=== PATIENT | female | born 1955 | race Caucasian/White ===

== ENCOUNTER → 2016-12-26 | Outpatient (REF) | payer OTHER | LOC: M LAB REF 16:15 | PROVIDERS: ATTEND Surgery | DX: C44.519 Basal cell carcinoma of skin of other part of trunk (principal) ==

== ENCOUNTER → 2019-07-20 | Outpatient (REF) | payer OTHER | LOC: M LAB REF 11:04 | PROVIDERS: ATTEND Physician Assistant | DX: J02.9 Acute pharyngitis, unspecified (principal) ==

== ENCOUNTER → 2019-11-02 | Outpatient (CLI) | payer OTHER ==
--- NOTE | 2019-11-02 09:54 | REP ---
Right foot four views: There is an osteotomy at the neck of the great toe metatarsal with t internal fixation utilizing two orthopedic screws. There is osteoarthritis at the great toe MTP articulation. Mineralization and joint spaces are otherwise unremarkable. There is no acute fracture or dislocation. There are no calcifications or foreign bodies. Impression: Postsurgical changes in the neck of the great toe metatarsal. Great toe MTP joint osteoarthritis. Electronically Signed by Alvarez Sunshine MD 11/02/2019 09:45 A
== END ==
LOC: M ADAMS 09:16
PROVIDERS: ATTEND Physician Assistant
DX: M79.671 Pain in right foot (principal); M19.071 Primary osteoarthritis, right ankle and foot

== ENCOUNTER → 2022-04-11 | Outpatient (CLI) | payer OTHER | LOC: M ADAMS 09:46 | PROVIDERS: ATTEND Nurse Practitioner Family | DX: Q76.5 Cervical rib (principal) ==

== ENCOUNTER → 2022-09-08 | Outpatient (CLI) | payer MEDICARE, OTHER | LOC: M WUC 15:08 | PROVIDERS: ATTEND Physician Assistant | DX: S52.501A Unspecified fracture of the lower end of right radius, initial encounter for closed fracture (principal); S52.614A Nondisplaced fracture of right ulna styloid process, initial encounter for closed fracture; X58.XXXA Exposure to other specified factors, initial encounter; Y92.9 Unspecified place or not applicable; Y93.9 Activity, unspecified; Y99.9 Unspecified external cause status ==

== ENCOUNTER → 2023-05-12 | Outpatient (CLI) | payer MEDICARE, OTHER | LOC: M WUC 10:12 | PROVIDERS: ATTEND Physician Assistant | DX: M25.572 Pain in left ankle and joints of left foot (principal); M79.662 Pain in left lower leg; M77.32 Calcaneal spur, left foot ==

== ENCOUNTER → 2025-08-13 | Outpatient (CLI) | payer MEDICARE, OTHER | LOC: M WUC 09:34 | DX: M79.671 Pain in right foot (principal); M19.071 Primary osteoarthritis, right ankle and foot; M20.11 Hallux valgus (acquired), right foot ==